=== PATIENT | female | born 1985 | race African-American/Black ===

== ENCOUNTER → 2022-06-15 10:38 | Outpatient (BNVA) | payer OTHER, SELFPAY | PROVIDERS: Visit Provider Physician Assistant Medical | DX: S60.221A Contusion of right hand, initial encounter (principal); Y04.2XXA Assault by strike against or bumped into by another person, initial encounter | CPT/HCPCS: 73110; 73130; 99203 ==

== ENCOUNTER → 2022-06-20 08:21 | Outpatient (BNVA) | payer OTHER, SELFPAY | PROVIDERS: Visit Provider Physician Assistant Medical | DX: S60.221A Contusion of right hand, initial encounter (principal); Y04.2XXA Assault by strike against or bumped into by another person, initial encounter | CPT/HCPCS: 99213 ==

== ENCOUNTER 2022-06-27 09:00 | Outpatient (RCR) | payer OTHER, SELFPAY ==
--- NOTE | 2022-06-23 12:20 | MHC.OT.OEV ---
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 instructed to use hot compresses. 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 painful and trying to avoid use of right thumb Unable to work out at the gym Sleep: Wakes with discomfort Driving: WNL with TS Vision: Balance: Pain Assessment Pain Score: 8 Pain Scale Used: Numeric (0 - 10) Pain Location and Description: 4-8 Right thumb . achy Aggravating Factors: Gripping and pinching Alleviating Factors: Heat Skin and Soft Tissue Assessment Skin and Soft Tissue: Comments: No abnormalities noted Nerve assessment Ulnar Nerve: Median Nerve: Radial Nerve: Comments: Sensory Assessment Temperature: Light Touch: WNL Proprioception: Vibration: Comments: Edema Assessment Upper Extremity: WNL Lower Extremity: Comments: Dexterity Assessment Dexterity: WFL Comments: Special Tests Comments: AROM(PROM) Strength Cervical Cervical Flexion: Cervical Extension: Cervical Lateral Flexion: Cervical Rotation: Comments: Shoulder Flexion: Extension: Abduction: Internal Rotation: External Rotation: Comments: Flexion: Extension: Abduction: Internal Rotation: External Rotation: Comments: Elbow Flexion: Extension: Pronation: Supination: Comments: Flexion: Extension: Pronation: Supination: Comments: Wrist Flexion: Extension: Ulnar Deviation: Radial Deviation: Comments: WFL Flexion: Extension: Ulnar Deviation: Radial Deviation: Comments: Thumb Thumb CMC Flexion: Thumb MCP Flexion: Thumb IP Flexion: Radial Abduction: Palmar Abduction: [place] ([place] 0-10): Comments: Digits Index MCP: PIP: DIP: Long MCP: PIP: DIP: Ring MCP: PIP: DIP: Small MCP: PIP: DIP: Comments: WNL Gross Grasp: R 30 lb L 50 lb Lateral Pinch: R 8 lb L 16 lb Two-Point Pinch: Three-Jaw Neftaly: Comments: Patient Education Primary Language: Occitan Hog Cooler Required: No Current Knowledge: None Teaching Method: Verbal Education Needs Identified on Evaluation: Exercise Pain How did patient/family demonstrate learning? Patient demonstrates Patient verbalizes Barriers to Learning: None Readiness for Learning: Accepting Who was educated? Patient Comments: Plan of Care Assessment: Pt 2 wks s/p right hand contusion at work presents with con't complaint of pain with end ROM and with mod heavy activities. 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
--- NOTE | 2022-06-27 09:31 | MHC.OT.DC ---
[address] [phone] F: [phone] Occupational Therapy Discharge Note Provider: Idania Quezada Diagnosis: Right Hand contusion Date of Surgery: Date of Evaluation: 06/23/22 Date of Discharge: 06/27/22 Treatments to Date: 2 Cancellations to Date: 0 No Shows to Date: 0 Discharge Status: Achieved Goals Improved Function Independent with HEP Discharge Summary: Pt right hand pain resolved. 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
== END 2022-06-27 09:32 | disposition home or self-care (01) ==
LOC: HO.OT 09:00
PROVIDERS: Visit Provider Physician Assistant Medical
DX: S60.221D Contusion of right hand, subsequent encounter (principal); R60.0 Localized edema
CPT/HCPCS: 97110; 97165

== ENCOUNTER → 2022-06-29 08:50 | Outpatient (BNVA) | payer OTHER, SELFPAY | PROVIDERS: Visit Provider Physician Assistant Medical | DX: S60.221A Contusion of right hand, initial encounter (principal); Y04.2XXA Assault by strike against or bumped into by another person, initial encounter | CPT/HCPCS: 99213 ==